=== PATIENT | male | born 1985 | race African-American/Black ===

== ENCOUNTER 2024-01-31 12:48 | Outpatient (AMB) | payer OTHER, SELFPAY ==
--- NOTE | 2024-01-31 13:02 | HO.SPINEOV ---
Intake Intake Visit Reasons: neck pain and numbness Intake Note: Mr. Peng is here today c/o pain in spine numbness in neck, and shoulder. Zookeeper Required: No Allergies No Known Allergies Allergy (Verified 01/31/24 13:21) Assessment & Plan Assessment & Plan (1) Left arm pain: Code(s): M79.602 - Pain in left arm Plan Dear colleague, Thank you for referring Jeb to our office today. He is a pleasant 38 y/o male who comes in today with a CC of left-sided shoulder pain and shooting pains from his left elbow into his left 4th and 5th phalanges. He states this pain has no inciting incident and began roughly 6 months ago. He states that utilizing his left hand too much and typing on his computer at work aggravates his symptoms. He reports that resting and refraining from left upper extremity use helps to alleviate his symptoms. He reports he was recently seen by physiatry who did a cortisone injection in his left shoulder and ordered him an EMG. He was informed that he likely had a cubital tunnel syndrome but wanted to have his MRI reviewed by Neurosurgery today to rule out a cervical nerve impingement. He states he is attempted to utilize diclofenac, arnica oil, ibuprofen, and intermittent muscle relaxers/oxycodone in order to resolve this pain. He reports that he is currently getting fairly decent relief from diclofenac + arnica oil. PMH: Seborrheic dermatitis, tinea pedis, Social hx: Patient does not smoke, reports no substance use aside from drinking alcohol socially. Medications: Pepcid, famotidine, ketoconazole, clotrimazole. Allergies: NKDA Physical exam: The patient has 5/5 strength in his upper and lower extremities. His reflexes are 2+ intact. His sensation is grossly intact. He is able to ambulate well and rises from a seated position without difficulty. (+) Tinel's at elbow on the left. (-) Lhermitte's. (-) Ramirez's. (-) clonus. Imaging review: MRI of the cervical spine completed at [facility] shows some very mild spondylosis of the cervical spine with mild-moderate bilateral foraminal stenosis at C5-6. X-ray imaging reviewed at [facility] shows an anterior bone spur at C5. No obvious spondylolisthesis seen. Impression: Jeb is a pleasant 38-year-old male who comes in today with 6 moths of atraumatic left-sided shoulder pain and shooting pains down his left forearm that originate in the left elbow and terminate in his left 4th & 5th phalanges. He reports he is being followed by physiatry for this issue and recently got an injection in his left shoulder which provided some shoulder relief. He states that they also sent him for an EMG of his left upper extremity. He was informed that we believe he has likely cubital tunnel syndrome on the left, which if proven by an EMG can be addressed by our office. He was encouraged to reach back out to us if he needs someone to perform the surgery in the future. His MRI does not appear to be surgical at this time there is no obvious nerve impingement at C3/C4 that could be replicating his left-sided shoulder pain. Thank you for allowing us to care for your patient. The total time spent with this visit with this patient was 45 minutes reviewing history, physical exam, MRI & X-ray imaging review, and implementation of treatment plan or further diagnostic testing Jimmy Hendrickson MD,PhD [facility] Coding Level of Care Code New Pt Level 4 (49578) Diagnoses Left arm pain M79.602
== END 2024-01-31 14:01 | disposition home or self-care (01) ==
PROVIDERS: PCP Nurse Practitioner Primary Care; Referring Provider Nurse Practitioner Primary Care; Visit Provider Physician Assistant
DX: M79.602 Pain in left arm (principal)
CPT/HCPCS: 99204

== ENCOUNTER → 2024-01-31 12:48 | Outpatient (BNVA) | payer OTHER, SELFPAY | PROVIDERS: PCP Nurse Practitioner Primary Care; Visit Provider Physician Assistant ==